=== PATIENT | male | born 1955 | race African-American/Black ===

== ENCOUNTER 2018-11-15 07:13 | Day surgery (SDC) ==
[2015-09-27 10:43] VITALS: BMI 36.0
[2018-11-15 07:37] VITALS: TEMP 98.5
[2018-11-15] MEDS ORDERED: LIDOCAINE 1% 20 ML MDV ID STA (07:37)
[2018-11-15] MEDS ORDERED: VERSED ONE (08:55)
[2018-11-15] MEDS ORDERED: DIPRIVAN 20 ML VIAL IVP ONE (08:55)
[2018-11-15 13:30] VITALS: BP 120/72
--- NOTE | 2018-11-16 08:16 | OP ---
INDICATIONS FOR PROCEDURE: 63-year-old gentleman presents for screening colon exam. He is asymptomatic. He states his brother did have recent colon surgery, not sure why but he states his brother told him he is cancer free. MEDICATIONS: SEE ANESTHESIA NOTES. PROCEDURE: COLONOSCOPY, SNARE POLYPECTOMY, ENDOCLIP THERAPY. REPORT: The risks, benefits, alternatives and limitations were discussed in detail with the patient. Informed consent was obtained. After adequate sedation was achieved, a digital rectal exam revealed good tone, no masses. The colonoscope was introduced into the rectum and advanced under direct visual guidance to the cecum. The cecum was identified by the appendiceal orifice and IC valve. I then slowly withdrew the scope in a circumferential manner examining the mucosa quite carefully. I looked on the proximal and distal side of folds and flexures as best as possible. I was able to retroflex the scope in the right colon as well as the left colon to increase visualization. In the mid ascending and proximal transverse colon, there were two sessile polyps that were about 6 mm in size. I removed both of these polyps by snare technique. They were placed in the same pathology jar. In the mid transverse colon there were three polyps about 6 to 7 mm in size and sessile. These three were removed by snare technique and placed in the same pathology jar. At 29 cm there was a 1.5 cm flat polyp. It appeared hyperplastic. I did elect to remove this by snare technique. It was successfully retrieved. The polyp was collected and endoclip was used to close the polypectomy site. Roughly at 22 cm there were three polyps, about 1 cm in size and sessile. There were several smaller hyperplastic appearing polyps throughout the mid sigmoid and distal sigmoid. These three larger polyps were ambulatory services representative appearance of these. I elected to remove these by snare technique. These three larger polyps were retrieved. No other abnormalities were noted including on retroflex view of the anal canal. The prep was good. The withdrawal time was 22 minutes and 16 seconds. The patient tolerated the procedure well with stable vital signs and pulse oximetry throughout. IMPRESSION: 1. Nine (9) polyps removed as above. RECOMMENDATIONS: 1. Await pathology results. If there are any adenomatous changes then I suggest a repeat colonoscopy examination again in one year. If pathology shows everything to be a tranditional hyperplastic polyp then I suggest surveillance examination again in three years. 2. Will see him back in the office as needed. cc: Dr. Noah MORIN
== END 2018-11-15 10:20 | disposition home or self-care (01) ==
LOC: SURG 07:13
PROVIDERS: ATTEND Internal Medicine Gastroenterology
DX: Z12.11 Encounter for screening for malignant neoplasm of colon (principal); K63.5 Polyp of colon; D12.2 Benign neoplasm of ascending colon; D12.5 Benign neoplasm of sigmoid colon; D12.3 Benign neoplasm of transverse colon